=== PATIENT | female | born 2000 | race Asian ===

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

== ENCOUNTER 2018-05-05 18:58 | Emergency (ER) | payer SELFPAY ==
[2018-05-05 20:57] LABS: ABSOLUTE EOSINOPHILS # (AUTO) 0.1 10^3/uL (0.0-0.6); ABSOLUTE LYMPHOCYTES (AUTO) 1.6 10^3/uL (0.5-4.7); ABSOLUTE MONOCYTES (AUTO) 0.6 10^3/uL (0.1-1.4); ABSOLUTE NEUT (AUTO) 7.5 10^3/uL (1.7-8.2); BASOPHILS % (AUTO) 0.3 % (0-2); EOSINOPHILS % (AUTO) 1.1 % (0-6); HEMATOCRIT 35.8 % (36.0-47.0); HEMOGLOBIN 12.7 g/dL (12.0-15.5); LYMPHOCYTES % (AUTO) 16.3 % (13-45); MEAN CORPUSCULAR HEMOGLOBIN 33.9 pg (27.0-33.4); MEAN CORPUSCULAR HGB CONC 35.5 g/dL (32.0-36.0); MEAN CORPUSCULAR VOLUME 95 fl (80-97); MONOCYTES % (AUTO) 6.4 % (3-13); PLATELET COUNT 262 10^3/uL (150-450); RED BLOOD COUNT 3.75 10^6/uL (3.72-5.28); RED CELL DISTRIBUTION WIDTH 17.1 % (11.5-14.0); SEGMENTED NEUTROPHILS % (AUTO) 75.9 % (42-78); TOTAL CELLS COUNTED % (AUTO) 100 %; WHITE BLOOD COUNT 9.8 10^3/uL (4.0-10.5)
[2018-05-05 21:08] LABS: ALANINE AMINOTRANSFERASE 11 U/L (5-35); ALKALINE PHOSPHATASE 43 U/L (50-135); ANION GAP 8 (5-19); ASPARTATE AMINO TRANSFERASE 18 U/L (5-30); BILIRUBIN,DIRECT 0.1 mg/dL (0.0-0.4); BILIRUBIN,TOTAL 0.2 mg/dL (0.2-1.3); BLOOD UREA NITROGEN 7 mg/dL (7-20); CALCIUM 9.5 mg/dL (8.4-10.2); CARBON DIOXIDE 25 mmol/L (22-30); CHLORIDE 103 mmol/L (98-107); GLUCOSE 83 mg/dL (75-110); LIPASE 128.1 U/L (23-300); SODIUM 135.8 mmol/L (137-145); TOTAL PROTEIN 7.2 g/dL (6.3-8.2)
[2018-05-05 21:10] LABS: APPEARANCE,URINE SLIGHTLY-CLOUDY; BILIRUBIN,URINE NEGATIVE (NEGATIVE); COLOR,URINE YELLOW; GLUCOSE, URINE NEGATIVE (NEGATIVE); KETONES,URINE NEGATIVE (NEGATIVE); LEUKOCYTE ESTERASE,URINE MODERATE (NEGATIVE); NITRITE,URINE NEGATIVE (NEGATIVE); PROTEIN,URINE 30 mg/dL (NEGATIVE); URINE SPECIFIC GRAVITY 1.027; UROBILINOGEN,URINE NEGATIVE mg/dL (<2.0)
--- NOTE | 2018-05-05 22:29 | ER Document Report ---
ED Medical Screen (RME) - General Chief Complaint: Abdominal Pain Stated Complaint: ABDOMINAL PAIN Time Seen by Provider: 05/05/18 22:25 Notes: Patient is a 17-year-old female who presents to the emergency department with a chief complaint of left lower abdominal pain. She is 14 weeks . She states that the pain is in her left lower quadrant and then radiates to her back. She took ibuprofen for the pain. She also has some nausea with her pain. I have greeted and performed a rapid initial assessment of this patient. A co mprehensive ED assessment and evaluation of the patient, analysis of test results and completion of medical decision making process will be conducted by an additional ED providers. TRAVEL OUTSIDE OF THE [place] IN LAST 30 DAYS: No - Related Data Allergies/Adverse Reactions: No Known Allergies Allergy (Unverified 01/29/13 13:22) Past Medical History Renal/ Medical History: Denies: Hx Peritoneal Dialysis Psychiatric Medical History: Reports: Hx Attention Deficit Hyperactivity Disorder - Immunizations Immunizations up to date: Yes Hx Diphtheria, Pertussis, Tetanus Vaccination: Yes Physical Exam - Vital signs Vitals: Temp Pulse Resp BP Pulse Ox 98.3 F 75 16 121/71 99 05/05/18 19:26 05/05/18 19:26 05/05/18 19:26 05/05/18 19:26 05/05/18 19:26 - Abdominal Tenderness: Tender Course - Re-evaluation Re-evalutation: I have educated the patient in regards to taking Motrin for her pain. She states that she will not take Motrin anymore for pain while she is . - Vital Signs Vital signs: Temp Pulse Resp BP Pulse Ox 98.9 F 78 16 121/89 H 98 05/06/18 01:35 05/06/18 01:35 05/06/18 01:35 05/06/18 01:35 05/06/18 01:35 - Laboratory Result Diagrams: 05/05/18 20:05 05/05/18 20:05 Laboratory results interpreted by me: 05/05/18 05/05/18 05/05/18 20:05 20:05 20:05 Hct 35.8 L MCH 33.9 H RDW 17.1 H Sodium 135.8 L Creatinine 0.39 L Alkaline Phosphatase 43 L Beta HCG, Quant Urine Protein 30 H Ur Leukocyte Esterase MODERATE H Urine Ascorbic Acid 40 H 05/05/18 20:05 Hct MCH RDW Sodium Creatinine Alkaline Phosphatase Beta HCG, Quant 09089.00 H Urine Protein Ur Leukocyte Esterase Urine Ascorbic Acid Doctor's Discharge - Discharge Clinical Impression: Abdominal pain during Qualifiers: Trimester: second trimester Qualified Code(s): O26.892 - Other specified related conditions, second trimester UTI (urinary tract infection) Qualifiers: Urinary tract infection type: site unspecified Hematuria presence: without hematuria Qualified Code(s): N39.0 - Urinary tract infection, site not specified Condition: Good Disposition: HOME, SELF-CARE Prescriptions: Cephalexin Monohydrate [Keflex 500 mg Capsule] 500 mg PO BID 5 Days #10 capsule Ondansetron [Zofran Odt 4 mg Tablet] 1 tab PO Q4H PRN #15 tab.rapdis PRN Reason: For Nausea/Vomiting
--- NOTE | 2018-05-05 23:38 | RADIOLOGY REPORT (SQ) ---
EXAM DESCRIPTION: US LIMITED COMPLETED DATE/TME: 05/05/2018 22:25 CLINICAL HISTORY: 17 years Female, 14 weeks ; abdominal pain Comparison: None. TECHNIQUE/LIMITATION: Targeted OB sonogram for requested parameters only. FINDINGS: EGA is 14w 5d with SAMANTHA of 10/29/18 Cardiac activity: 163-bpm. LVP: 3.4-cm Placenta: Anterior. No evidence of abruption. No placenta previa. Presentation: Vertex Cervical length: 3.1-cm. Closed appearance. IMPRESSION: Targeted OB sonogram for requested parameters
[2018-05-06] MEDS ORDERED: LIDOCAINE 1% INJ-PF (10 MG/ML) 30 ML SDV INFIL ONE (00:18)
[2018-05-06] MEDS ORDERED: CEFTRIAXONE INJ 1000 MG VIAL IM ONE (00:18)
--- NOTE | 2018-05-06 00:18 | ER Document Report ---
ED General - General Chief Complaint: Abdominal Pain Stated Complaint: ABDOMINAL PAIN Time Seen by Provider: 05/05/18 22:25 Notes: Patient is a pleasant 17-year-old female who is currently approximately 14 weeks who presents with complaint of some pain in the left lower quadrant and suprapubic region of the abdomen. No nausea. No vomiting. No fevers. She says that she notices that when she goes to pee she has pain and cramping into her lower abdomen when she urinates. No abnormal vaginal discharge or bleeding. No vaginal bleeding at all. No other complaints at this time. TRAVEL OUTSIDE OF THE [place] IN LAST 30 DAYS: No - Related Data Allergies/Adverse Reactions: No Known Allergies Allergy (Unverified 01/29/13 13:22) Past Medical History - Social History Smoking Status: Never Smoker Frequency of alcohol use: None Drug Abuse: None Family History: Reviewed & Not Pertinent Patient has suicidal ideation: No Patient has homicidal ideation: No Renal/ Medical History: Denies: Hx Peritoneal Dialysis Psychiatric Medical History: Reports: Hx Attention Deficit Hyperactivity Disorder - Immunizations Immunizations up to date: Yes Hx Diphtheria, Pertussis, Tetanus Vaccination: Yes Review of Systems - Review of Systems Notes: My Normal Review Basic REVIEW OF SYSTEMS: CONSTITUTIONAL : Denies fever, chills, or sweats. Denies recent illness. EENT: Denies eye, ear, throat, or mouth pain or symptoms. Denies nasal or sinus congestion. GASTROINTESTINAL: Lower abdominal pain GENITOURINARY: Some pain in lower abdomen when urinating FEMALE GENITOURINARY: Denies vaginal bleeding, abnormal or irregular periods. LMP: Currently MUSCULOSKELETAL: Denies neck or back pain or joint pain or swelling. SKIN: Denies rash or skin lesions. NEUROLOGICAL: Denies altered mental status or loss of consciousness. Denies headache. Denies weakness or paralysis or loss of use of either side. Denies problems with gait or speech. Denies sensory or motor loss. ALL OTHER SYSTEMS REVIEWED AND NEGATIVE. Physical Exam - Vital signs Vitals: Temp Pulse Resp BP Pulse Ox 98.3 F 75 16 121/71 99 05/05/18 19:26 05/05/18 19:26 05/05/18 19:26 05/05/18 19:26 05/05/18 19:26 - Notes Notes: General Appearance: Well nourished, alert, cooperative, no acute distress, no obvious discomfort. Well-appearing. Vitals: reviewed, See vital signs table. Eyes: PERRL, EOMI, Conjuctiva clear Mouth: No decreasd moisture Lungs: No wheezing, No rales, No rhonci, No accessory muscle use, good air exchange bilaterally. Heart: Normal rate, Regular rythm, No murmur, no rub Abdomen: Normal BS, soft, No rigidity, mild suprapubic abdominal tenderness palpation., No guarding, no rebound, no abdominal masses, no organomegaly Extremities: good pulses in all extremities, no swelling or tenderness in the extremities, no edema. Skin: warm, dry, appropriate color, no rash Neuro: speech clear, oriented x 3, normal affect, responds appropriately to questions. Course - Re-evaluation Re-evalutation: 05/06/18 09:10 I feel patient is safe to be discharged home. Patient has what appears to be UTI. Give her a dose of Rocephin and will place her on Keflex. She denies abnormal vaginal discharge or bleeding. Ultrasound shows normal-appearing IUP. She has no fevers. She has not septic or toxic appearing. She is already on vitamins. I encouraged patient to return to ER immediately if she has fevers, abnormal vaginal discharge, any vaginal bleeding, or increasing pain. Patient agrees with plan and will be discharged home. Dictation of this chart was performed using voice recognition software; therefore, there may be some unintended grammatical errors. - Vital Signs Vital signs: Temp Pulse Resp BP Pulse Ox 98.9 F 78 16 121/89 H 98 05/06/18 01:35 05/06/18 01:35 05/06/18 01:35 05/06/18 01:35 05/06/18 01:35 - Laboratory Result Diagrams: 05/05/18 20:05 05/05/18 20:05 Laboratory results interpreted by me: 05/05/18 05/05/18 05/05/18 20:05 20:05 20:05 Hct 35.8 L MCH 33.9 H RDW 17.1 H Sodium 135.8 L Creatinine 0.39 L Alkaline Phosphatase 43 L Beta HCG, Quant Urine Protein 30 H Ur Leukocyte Esterase MODERATE H Urine Ascorbic Acid 40 H 05/05/18 20:05 Hct MCH RDW Sodium Creatinine Alkaline Phosphatase Beta HCG, Quant 35442.00 H Urine Protein Ur Leukocyte Esterase Urine Ascorbic Acid Discharge - Discharge Clinical Impression: Abdominal pain during Qualifiers: Trimester: second trimester Qualified Code(s): O26.892 - Other specified related conditions, second trimester UTI (urinary tract infection) Qualifiers: Urinary tract infection type: site unspecified Hematuria presence: without hematuria Qualified Code(s): N39.0 - Urinary tract infection, site not specified Condition: Good Disposition: HOME, SELF-CARE Prescriptions: RX: Cephalexin Monohydrate [Keflex 500 mg Capsule] 500 mg PO BID 5 Days #10 capsule Ondansetron [Zofran Odt 4 mg Tablet] 1 tab PO Q4H PRN #15 tab.rapdis PRN Reason: For Nausea/Vomiting
[2018-05-06 01:36] VITALS: BP 121/89
== END 2018-05-06 01:35 | disposition home or self-care (01) ==
LOC: ER 18:58
DX: O23.42 Unspecified infection of urinary tract in pregnancy, second trimester (principal); O26.892 Other specified pregnancy related conditions, second trimester; R10.32 Left lower quadrant pain; Z3A.00 Weeks of gestation of pregnancy not specified
CPT/HCPCS: 99284; 96372; 36415; 87086; 84702; 83690; 85025; 80053; 81001; 76815; J3490; J0696

== ENCOUNTER → 2018-06-13 | Outpatient (CLI) | payer OTHER ==
--- NOTE | 2018-06-13 16:25 | RADIOLOGY REPORT (SQ) ---
EXAM DESCRIPTION: U/S OB 14+ TRNABD 1GES W/O DOP COMPLETED DATE/TIME: 06/13/2018 3:54 pm REASON FOR STUDY: Z34.92 ENCOUNTER FOR SUPERVISION OF NORMAL ,UNSPECIFIED,SECOND TRI COMPARISON: None. TECHNIQUE: Static and Dynamic grayscale imaging performed of gravid uterus using transabdominal appr oac. Additional selected color Doppler and spectral images recorded. All stored on PACS. LIMITATIONS: None. FINDINGS: FETUSES SEEN:1 EGA: 20 weeks 2 days Calculated using BPD,FL,HC,AC documented on images. No discrepancy with clinica l dates. SAMANTHA: 10/29/2018 EFW: 345 grams PERCENTILE: Not applicable. Fetus less than or equal to 20 weeks gestation. GOPI: 4.0 PLACENTA: Anterior. GRADE: I PRESENTATION: Cephalic. ANATOMY: HEART RATE: 145 beats per minute. FOUR CHAMBER HEART: Visualized. THREE VESSEL CORD: Yes. CORD INSERTION: Visualized. KIDNEYS AND BLADDER: Visualized. Appear normal. STOMACH: Visualized. Appears normal. SPINE: Normal as visualized. BRAIN AND LATERAL VENTRICLES: Visualized. Appear normal. OTHER: No other significant finding. MATERNAL ADNEXA: Maternal ovaries not visualized. CERVICAL LENGTH: 3.4 cm. Closed. OTHER: No other significant finding. IMPRESSION: LIVING INTRAUTERINE . ESTIMATED GESTATIONAL AGE 20 weeks 2 days. NO VISUALIZED ANOMALIES. Trimester of : Second trimester - 13 weeks 1 day to 27 weeks 6 days. TECHNICAL DOCUMENTATION: JOB ID: [id number] [employer]- All Rights Reserved Reading location - IP/workstation name: [email or web address]
== END ==
LOC: RAD 17:52
PROVIDERS: ATTEND Family Medicine
DX: Z34.92 Encounter for supervision of normal pregnancy, unspecified, second trimester (principal)
CPT/HCPCS: 76805

== ENCOUNTER → 2018-09-15 | Outpatient (CLI) | payer MEDICAID | LOC: OD 16:45 | PROVIDERS: ATTEND Obstetrics & Gynecology | DX: Z34.03 Encounter for supervision of normal first pregnancy, third trimester (principal) | CPT/HCPCS: 36415; 86850 ==

== ENCOUNTER 2018-09-21 11:50 | Outpatient (CLI) | payer MEDICAID ==
[2018-09-21 12:24] LABS: ABSOLUTE EOSINOPHILS # (AUTO) 0.2 10^3/uL (0.0-0.6); ABSOLUTE LYMPHOCYTES (AUTO) 1.6 10^3/uL (0.5-4.7); ABSOLUTE MONOCYTES (AUTO) 0.9 10^3/uL (0.1-1.4); BASOPHILS % (AUTO) 0.2 % (0-2); EOSINOPHILS % (AUTO) 1.4 % (0-6); HEMATOCRIT 31.6 % (36.0-47.0); HEMOGLOBIN 10.8 g/dL (12.0-15.5); LYMPHOCYTES % (AUTO) 13.6 % (13-45); MEAN CORPUSCULAR HEMOGLOBIN 33.3 pg (27.0-33.4); MEAN CORPUSCULAR HGB CONC 34.4 g/dL (32.0-36.0); MEAN CORPUSCULAR VOLUME 97 fl (80-97); MONOCYTES % (AUTO) 7.7 % (3-13); PLATELET COUNT 242 10^3/uL (150-450); RED BLOOD COUNT 3.26 10^6/uL (3.72-5.28); SEGMENTED NEUTROPHILS % (AUTO) 77.1 % (42-78); TOTAL CELLS COUNTED % (AUTO) 100 %; WHITE BLOOD COUNT 11.6 10^3/uL (4.0-10.5)
[2018-09-21 12:45] LABS: ALANINE AMINOTRANSFERASE 11 U/L (5-35); ALBUMIN 3.4 g/dL (3.7-5.6); ALKALINE PHOSPHATASE 64 U/L (50-135); AMYLASE 93 U/L (30-110); ANION GAP 9 (5-19); ASPARTATE AMINO TRANSFERASE 18 U/L (5-30); BILIRUBIN,DIRECT 0.1 mg/dL (0.0-0.4); BILIRUBIN,TOTAL 0.3 mg/dL (0.2-1.3); BLOOD UREA NITROGEN 4 mg/dL (7-20); CALCIUM 9.1 mg/dL (8.4-10.2); CARBON DIOXIDE 24 mmol/L (22-30); CHLORIDE 103 mmol/L (98-107); GLUCOSE 88 mg/dL (75-110); LIPASE 103.1 U/L (23-300); POTASSIUM 3.7 mmol/L (3.6-5.0); SODIUM 135.9 mmol/L (137-145); TOTAL PROTEIN 6.6 g/dL (6.3-8.2)
[2018-09-21] MEDS ORDERED: ACETAMINOPHEN 325 MG TABLET PO PRN (12:55)
[2018-09-21] MEDS ORDERED: CITRIC ACID/SODIUM CITRATE ORAL SOLN 15 ML UDCUP PO ONE (12:55)
[2018-09-21] MEDS ORDERED: ACETAMINOPHEN 325 MG TABLET ONE (12:58)
[2018-09-21] MEDS ORDERED: CITRIC ACID/SODIUM CITRATE ORAL SOLN 15 ML UDCUP ONE (12:58)
[2018-09-21 13:11] LABS: APPEARANCE,URINE CLEAR; BILIRUBIN,URINE NEGATIVE (NEGATIVE); COLOR,URINE YELLOW; GLUCOSE, URINE NEGATIVE (NEGATIVE); KETONES,URINE NEGATIVE (NEGATIVE); LEUKOCYTE ESTERASE,URINE SMALL (NEGATIVE); NITRITE,URINE NEGATIVE (NEGATIVE); PROTEIN,URINE NEGATIVE (NEGATIVE); URINE SPECIFIC GRAVITY 1.009; UROBILINOGEN,URINE NEGATIVE mg/dL (<2.0)
[2018-09-21 13:50] LABS: URINE AMPHETAMINES SCREEN NEGATIVE; URINE BARBITURATES SCREEN NEGATIVE; URINE BENZODIAZEPINES SCREEN NEGATIVE; URINE COCAINE SCREEN NEGATIVE; URINE METHADONE SCREEN NEGATIVE; URINE PHENCYCLIDINE SCREEN NEGATIVE
[2018-09-21 13:57] LABS: URINE MARIJUANA (THC) SCREEN UNCONFIRMED POSITIVE
== END 2018-09-21 13:50 | disposition home or self-care (01) ==
LOC: LC 11:50
PROVIDERS: ATTEND Obstetrics & Gynecology Gynecology
PROC: 4A1HXCZ Monitoring of Products of Conception, Cardiac Rate, External Approach (ICD-10-PCS; principal; 2018-09-21)
DX: O99.283 Endocrine, nutritional and metabolic diseases complicating pregnancy, third trimester (principal); E86.0 Dehydration; R11.2 Nausea with vomiting, unspecified; Z3A.34 34 weeks gestation of pregnancy
CPT/HCPCS: 59025; 36415; 82150; 83690; 85025; 81005; 80053; 80307; G0480 ×2; J3490 ×2; 80349

== ENCOUNTER → 2018-09-28 | Outpatient (CLI) | payer MEDICAID ==
--- NOTE | 2018-09-28 13:44 | RADIOLOGY REPORT (SQ) ---
EXAM DESCRIPTION: U/S ABDOMEN LIMITED W/O DOP COMPLETED DATE/TIME: 09/28/2018 12:11 pm REASON FOR STUDY: R10.11 R UPPER QUADRANT PAIN R10.11 RIGHT UPPER QUADRANT PAIN COMPARISON: None. TECHNIQUE: Dynamic and static grayscale images acquired of the abdomen and recorded on PACS. Additio nal selected color Doppler and spectral images recorded. LIMITATIONS: None. FINDINGS: PANCREAS: Not seen. LIVER: No masses. Echotexture normal. LIVER VASCULATURE: Normal directional flow of the main portal vein and hepatic veins. GALLBLADDER: Trace sludge. No gallstones. No wall thickening. No pericholecystic fluid. ULTRASOUND-DETECTED PATEL'S SIGN: Negative. INTRAHEPATIC DUCTS AND COMMON DUCT: CBD and intrahepatic ducts normal caliber. No filling defects. INFERIOR VENA CAVA: Normal flow. AORTA: No aneurysm. RIGHT KIDNEY: Normal size, 11.9 cm. Normal echogenicity. No solid or suspicious masses. Mild to mod erate hydronephrosis. No calcifications. PERITONEAL AND RIGHT PLEURAL SPACE: No ascites or effusions. OTHER: No other significant findings. IMPRESSION: Trace sludge in the gallbladder. No gallstones. Mild to moderate right hydronephrosis. TECHNICAL DOCUMENTATION: JOB ID: [id number] [employer]- All Rights Reserved Reading location - IP/workstation name: [email or web address]
== END ==
LOC: RAD 11:30
PROVIDERS: ATTEND Student in an Organized Health Care Education/Training Program
DX: O99.613 Diseases of the digestive system complicating pregnancy, third trimester (principal); K82.8 Other specified diseases of gallbladder; K92.0 Hematemesis; N13.30 Unspecified hydronephrosis; O26.893 Other specified pregnancy related conditions, third trimester; R10.11 Right upper quadrant pain; Z3A.34 34 weeks gestation of pregnancy
CPT/HCPCS: 76705

== ENCOUNTER 2018-10-20 02:08 | Outpatient (CLI) | payer MEDICAID ==
--- NOTE | 2018-10-20 02:21 | Non Stress Test Report ---
Non Stress Test Datetime Report Generated by CPN: 10/20/2018 02:21 DEMOGRAPHIC Test Number: 1 EGA NST: 34.5 INDICATION Indication for Study: Decreased Movement VITAL SIGNS Temperature - NST: 97.2 Pulse - NST: 74 RESP - NST: 17 NBPSYS NST: 116 NBPDIA NST: 66 MONITORING Monitor Explained: Monitor Explained; Test Explained; Patient Verbalized Understanding Time on Monitor: 09/21/2018 12:25 Time off Monitor: 09/21/2018 12:51 NST Duration: 26 NST INTERVENTIONS NST Interventions: PO Hydration Physician Notified NST: Dr Vargas BABY A: [id number] BABY A Movement : Present Contraction Frequency : denies FHR Baseline : 130 Accelerations : 10X10 Variability : Moderate 6-25bpm NST Review: Meets Criteria for Reactive NST NST Review and Verified By : Shan Baxter RN NST REPORT Report Trigger: Send Report
[2018-10-20] MEDS ORDERED: MAG HYDROX/AL HYDROX/SIMETH SUSP 30 ML UDCUP ONE (02:33)
[2018-10-20 02:55] LABS: APPEARANCE,URINE CLEAR; BILIRUBIN,URINE NEGATIVE (NEGATIVE); COLOR,URINE STRAW; GLUCOSE, URINE NEGATIVE (NEGATIVE); KETONES,URINE NEGATIVE (NEGATIVE); LEUKOCYTE ESTERASE,URINE MODERATE (NEGATIVE); NITRITE,URINE NEGATIVE (NEGATIVE); PROTEIN,URINE NEGATIVE (NEGATIVE); URINE SPECIFIC GRAVITY 1.006; UROBILINOGEN,URINE NEGATIVE mg/dL (<2.0)
[2018-10-20 03:11] LABS: URINE AMPHETAMINES SCREEN NEGATIVE; URINE BARBITURATES SCREEN NEGATIVE; URINE BENZODIAZEPINES SCREEN NEGATIVE; URINE COCAINE SCREEN NEGATIVE; URINE MARIJUANA (THC) SCREEN NEGATIVE; URINE METHADONE SCREEN NEGATIVE; URINE PHENCYCLIDINE SCREEN NEGATIVE
[2018-10-20] MEDS ORDERED: HYDROXYZINE PAMOATE 50 MG CAPSULE ONE ×2 (03:26→03:37)
--- NOTE | 2018-10-20 03:37 | Non Stress Test Report ---
Non Stress Test Datetime Report Generated by CPN: 10/20/2018 03:36 DEMOGRAPHIC EGA NST: 38.6 INDICATION Indication for Study: Other Indication for Study (NST) Other: LC MONITORING Monitor Explained: Monitor Explained; Test Explained; Patient Verbalized Understanding Time on Monitor: 10/20/2018 02:20 Time off Monitor: 10/20/2018 02:46 NST Duration: 26 NST INTERVENTIONS NST Interventions: PO Hydration Physician Notified NST: Vargas BABY A Movement : Present Contraction Frequency : 5-6 FHR Baseline : 130 Accelerations : 15X15 Decelerations : None Variability : Moderate 6-25bpm NST Review: Questionable if Meets Criteria for Reactive NST NST Review and Verified By : Ayan Campa RN NST Results: Reactive NST REPORT Report Trigger: Send Report
[2018-10-20] MEDS ORDERED: HYDROXYZINE PAMOATE 50 MG CAPSULE PO ONE (03:47)
[2018-10-20 04:39] LABS: CHLAM PCR NOT DETECTED (NOT DETECT)
== END 2018-10-20 03:45 | disposition home or self-care (01) ==
LOC: LC 02:08
PROVIDERS: ATTEND Obstetrics & Gynecology Gynecology
PROC: 4A1HXCZ Monitoring of Products of Conception, Cardiac Rate, External Approach (ICD-10-PCS; principal; 2018-10-20)
DX: O47.1 False labor at or after 37 completed weeks of gestation (principal); Z3A.38 38 weeks gestation of pregnancy
CPT/HCPCS: 81005; 80307; 87491; 87591; 59025; J3490 ×2

== ENCOUNTER 2018-10-26 21:34 | Inpatient (IN) | payer MEDICAID ==
[2018-10-26] MEDS ORDERED: AZITHROMYCIN 250 MG TABLET ONE (22:29)
[2018-10-26 22:34] LABS: APPEARANCE,URINE SLIGHTLY-CLOUDY; BILIRUBIN,URINE NEGATIVE (NEGATIVE); COLOR,URINE YELLOW; GLUCOSE, URINE NEGATIVE (NEGATIVE); KETONES,URINE NEGATIVE (NEGATIVE); LEUKOCYTE ESTERASE,URINE SMALL (NEGATIVE); NITRITE,URINE NEGATIVE (NEGATIVE); PROTEIN,URINE NEGATIVE (NEGATIVE); URINE SPECIFIC GRAVITY 1.021; UROBILINOGEN,URINE NEGATIVE mg/dL (<2.0)
[2018-10-26] MEDS ORDERED: OXYTOCIN 10 UNIT/ML VIAL ONE (22:37)
[2018-10-26] MEDS ORDERED: MISOPROSTOL 0.2 MG TABLET ONE (22:38)
[2018-10-26] MEDS ORDERED: OXYTOCIN/NORMAL SALINE 20 UNIT/1,000 ML RTUINJ ONE ×2 (22:38)
[2018-10-26] MEDS ORDERED: LIDOCAINE 1% INJ-PF (10 MG/ML) 30 ML SDV ONE (22:38)
[2018-10-26 22:51] LABS: URINE AMPHETAMINES SCREEN NEGATIVE; URINE BARBITURATES SCREEN NEGATIVE; URINE BENZODIAZEPINES SCREEN NEGATIVE; URINE COCAINE SCREEN NEGATIVE; URINE MARIJUANA (THC) SCREEN NEGATIVE; URINE METHADONE SCREEN NEGATIVE; URINE PHENCYCLIDINE SCREEN NEGATIVE
[2018-10-26] MEDS ORDERED: PENICILLIN G-K 5 MILLION UNIT VIAL ONE (23:12)
[2018-10-26 23:14] LABS: ABSOLUTE BASOPHILS # (AUTO) 0.2 10^3/uL (0.0-0.2); ABSOLUTE EOSINOPHILS # (AUTO) 0.1 10^3/uL (0.0-0.6); ABSOLUTE LYMPHOCYTES (AUTO) 2.2 10^3/uL (0.5-4.7); ABSOLUTE MONOCYTES (AUTO) 0.9 10^3/uL (0.1-1.4); ABSOLUTE NEUT (AUTO) 11.8 10^3/uL (1.7-8.2); EOSINOPHILS % (AUTO) 0.8 % (0-6); HEMATOCRIT 33.8 % (36.0-47.0); HEMOGLOBIN 11.5 g/dL (12.0-15.5); LYMPHOCYTES % (AUTO) 14.6 % (13-45); MEAN CORPUSCULAR HEMOGLOBIN 31.2 pg (27.0-33.4); MEAN CORPUSCULAR HGB CONC 34.2 g/dL (32.0-36.0); MEAN CORPUSCULAR VOLUME 91 fl (80-97); PLATELET COUNT 245 10^3/uL (150-450); RED CELL DISTRIBUTION WIDTH 14.4 % (11.5-14.0); SEGMENTED NEUTROPHILS % (AUTO) 77.6 % (42-78); TOTAL CELLS COUNTED % (AUTO) 100 %; WHITE BLOOD COUNT 15.3 10^3/uL (4.0-10.5)
[2018-10-27] MEDS ORDERED: ACETAMINOPHEN 325 MG TABLET ONE ×2 (00:04→06:00)
[2018-10-27] MEDS ORDERED: PENICILLIN G POTASSIUM 5,000,000 UNIT in DEXTROSE 5%-WATER 100 ML IV ONE (00:20)
[2018-10-27] MEDS ORDERED: NALBUPHINE HCL INJ 10 MG/1 ML AMPULE ONE (00:27)
[2018-10-27] MEDS ORDERED: EPHEDRINE SULFATE INJ 50 MG/1 ML AMPULE ONE (00:36)
[2018-10-27] MEDS ORDERED: BUPIVACAINE HCL 0.25 % INJ/PF (2.5 MG/1 ML) 30 ML VIAL ONE (00:37)
[2018-10-27] MEDS ORDERED: FENTANYL/BUPIVACAINE/NS/PF 300 MCG/150 ML RTUINJ EPI ONE (00:37)
[2018-10-27] MEDS ORDERED: ACETAMINOPHEN 325 MG TABLET PO ONE (01:15)
[2018-10-27] MEDS ORDERED: NALBUPHINE HCL INJ 10 MG/1 ML AMPULE IV ONE (01:15)
[2018-10-27] MEDS ORDERED: PENICILLIN G-K 5 MILLION UNIT VIAL ONE (02:54)
[2018-10-27] MEDS ORDERED: PENICILLIN G POTASSIUM 2,500,000 UNIT in DEXTROSE 5%-WATER 50 ML IV SCH (04:00)
--- NOTE | 2018-10-27 04:10 | Admission Physical ---
Datetime Report Generated by CPN: 10/27/2018 04:10 CURRENT ADMISSION Chief Complaint: Uterine Contractions Indication for Induction: Not Applicable Admit Impression : Term, Intrauterine Admit Plan: Initiate Labor Protocol ALLERGIES Medication Allergies: No Medication Allergies: No Known Allergies (10/20/2018) Latex: No Latex Allergies OBSTETRICAL HISTORY EDC: 10/28/2018 00:00 : 1 Para: 0 Gestational Diabetes: No Rh Sensitization: No Incompetent Cervix: No DEEP: No Infertility: No ART Treatment: No Uterine Anomaly: No IUGR: No Hx Previous C/S: No Macrosomia: No Hx Loss/Stillborn: No PIH: No Hx : No Placenta Previa/Abruption: No Depression/PP Depression: No PTL/PROM: No Post Hemorrhage: No Current Procedures: Ultrasound Obstetrical History Comments: G1- current , late PNC, RH neg, antibody positive Anti BIGS - adopting baby to aunt, incarcerated this SEE RECORDS Alcohol: No Marijuana : No Marijuana Frequency: 3 - 5 Times Per Week Marijuana Comments: Pt states useage was before Cocaine: No Other Illicit Drugs: No Cigarettes: Former Smoker. [id number] MEDICAL HISTORY Diabetes: No Blood Transfusion: No Pulmonary Disease (Asthma, TB): No Breast Disease: No Hypertension: No Educational Administrator Surgery: No Heart Disease: No Hosp/Surgery: No Autoimmune Disorder: No Anesthetic Complications: No Kidney Disease: No Abnormal Pap Smear: No Neuro/Epilepsy: No Psychiatric Disorders: No Other Medical Diseases: No Hepatitis/Liver Disease: No Significant Family History: No Varicosities/Phlebitis: No Trauma/Violence : No Thyroid Dysfunction: No INFECTIOUS HISTORY Gonorrhea: No Genital Herpes: No Chlamydia: Yes Tuberculosis: No Syphilis: No Hepatitis: No HIV/AIDS Exposure: No Rash or Viral Illness: No HPV: No PHYSICAL EXAM General: Normal HEENT: Normal Neurologic: Normal Thyroid: Normal Heart: Normal Lungs: Normal Breast: Deferred Back: Normal Abdomen: Normal Genitourinary Exam: Normal Extremities: Normal DTRs: Normal Pelvic Type: Adequate FETUS A EGA: 39.6 PLANS FOR LABOR AND DELIVERY Labor and Delivery: None Pain Management: Medications; Epidural Feeding Preference: Formula Circumcision: N/A INFORMED CONSENT Signature: with User ID: [email or web address]
[2018-10-27] MEDS ORDERED: OXYTOCIN/NORMAL SALINE 20 UNIT/1,000 ML RTUINJ IV PRN (04:59)
[2018-10-27] MEDS ORDERED: MAGNESIUM HYDROXIDE SUSP 30 ML UDCUP PO PRN (04:59)
[2018-10-27] MEDS ORDERED: PSEUDOEPHEDRINE HCL 30 MG TABLET PO PRN (04:59)
[2018-10-27] MEDS ORDERED: PROMETHAZINE HCL 25 MG TABLET PO PRN (04:59)
[2018-10-27] MEDS ORDERED: NA PHOS,M-B/NA PHOS,DI-BA (ADULT) 133 ML ENEMA PR PRN (04:59)
[2018-10-27] MEDS ORDERED: ACETAMINOPHEN 650 MG SUPP.RECT PR PRN (04:59)
[2018-10-27] MEDS ORDERED: MEASLES,MUMPS&RUBELLA VACC/PF 0.5 ML VIAL SUBCUT PRN (04:59)
[2018-10-27] MEDS ORDERED: GLYCERIN/WITCH HAZEL LEAF 1 EACH MED..WIPE TP PRN (04:59)
[2018-10-27] MEDS ORDERED: ZOLPIDEM TARTRATE 5 MG TABLET PO PRN (04:59)
[2018-10-27] MEDS ORDERED: ACETAMINOPHEN WITH CODEINE #3 TABLET PO PRN (04:59)
[2018-10-27] MEDS ORDERED: PROMETHAZINE HCL INJ 25 MG/1 ML VIAL IV PRN (04:59)
[2018-10-27] MEDS ORDERED: BENZOCAINE/MENTHOL AEROSOL SPRAY 56 ML TOP PRN (04:59)
[2018-10-27] MEDS ORDERED: DIPHENHYDRAMINE HCL 25 MG CAPSULE PO PRN (04:59)
[2018-10-27] MEDS ORDERED: DIBUCAINE 1% OINTMENT 56 GM TP PRN (04:59)
[2018-10-27] MEDS ORDERED: DIPH/PERTUSS(ACELL)/TETANUS VAC/PF 0.5 ML SYR (>=10YO) IM PRN (04:59)
[2018-10-27] MEDS ORDERED: PROMETHAZINE HCL 25 MG SUPP.RECT PR PRN (04:59)
--- NOTE | 2018-10-27 05:33 | Delivery Summary ---
Del Sum A-C Datetime Report Generated by CPN: 10/27/2018 05:33 DELIVERY PERSONNEL DELIVERY PERSONNEL: [id number] Delivery Doctor:: Magan Vargas MD Labor and Delivery Nurse:: Luciana Hein editor farm journal Nurse:: Lisa Campa, RN MATERNAL INFORMATION Delivery Anesthesia: Epidural Medications After Delivery: Pitocin Bolus-Please Comment Delivery QBL: 100 Maternal Complications: None LABOR SUMMARY EDC: 10/28/2018 00:00 Attempted: No Labor Anesthesia: Epidural LABOR INFORMATION Reason for Induction: Not Applicable Onset of Labor: 10/26/2018 21:00 Complete Dilatation: 10/27/2018 03:42 Oxytocin: N/A Group B Beta Strep: pos Antibiotics # of Doses: 2 Antibiotics Time of Last Dose: 0315 Name of Antibiotic Given: Penicillin Steroids Given: None Reason Steroids Not Administered: Not Applicable MEMBRANES Membranes Rupture Method: Spontaneous Rupture of Membranes: 10/26/2018 21:00 Length of Rupture (hr): 7.83 Amniotic Fluid Color: Clear Amniotic Fluid Amount: Moderate Amniotic Fluid Odor: Normal STAGES OF LABOR Stage 1 hr: 6 Stage 1 min: 42 Stage 2 hr: 1 Stage 2 min: 8 Stage 3 hr: 0 Stage 3 min: 4 Total Time in Labor hr: 7 Total Time in Labor min: 54 VAGINAL DELIVERY Episiotomy: None Laceration #1: None Laceration Extension #1: N/A Laceration Repair: Not Applicable CSECTION DELIVERY Primary Indication: N/A BABY A INFORMATION Delivery Date/Time: 10/27/2018 04:50 Method of Delivery: Vaginal Born in Route : No : N/A Forceps: N/A Vacuum Extraction: N/A Shoulder Dystocia : No PRESENTATION/POSITION BABY A Presentation: Cephalic Cephalic Presentation: Vertex Vertex Position: Right Occipital Anterior Breech Presentation: N/A PLACENTA INFORMATION BABY A Placenta Delivery Time : 10/27/2018 04:54 Placenta Method of Delivery: Spontaneous Placenta Status: Delivered SCORES BABY A Heart Rate 1 min: >100 bpm Resp Effort 1 min: Good Cry Reflex Irritability 1 min: Cough or Sneeze or Pulls Away Muscle Tone 1 min: Active Motion Color 1 min: Blue/Pale Resuscitation Effort 1 min: Tactile Stimulation SCORE 1 MIN: 8 Heart Rate 5 min: >100 bpm Resp Effort 5 min: Good Cry Reflex Irritability 5 min: Cough or Sneeze or Pulls Away Muscle Tone 5 min: Active Motion Color 5 min: Body Searcy, Extremities Blue Resuscitation Effort 5 min: Tactile Stimulation SCORE 5 MIN: 9 INFANT INFORMATION BABY A Gestational Age at Delivery: 39.6 Gestational Status: Full Term- 39- 40.6 Weeks Outcome : Liveborn Condition : Stable Infant Sex: Female IDENTIFICATION BABY A Infant Verification Date/Time: 10/27/2018 05:22 ID Band Number: [id number] Mother's Name Verified: Yes Infant RN Verifying Infant: Noe RN Additional Verifying Personnel: JAMES Luz WEIGHT/LENGTH BABY A Birthweight (gm): 3255 Weight (lb): 7 Infant Weight (oz): 3 Infant Length (in): 19.00 Infant Length (cm): 48.26 CORD INFORMATION BABY A No. Cord Vessels: 3 Nuchal Cord : N/A Nuchal Cord- Other: cord around foot Cord Blood Taken: Yes-For Eval (Mom's Blood Type - or O+) Suction: Mouth; Nose ASSESSMENT BABY A Complications: None Physical Findings at Delivery: Within Normal Limits Infant Respirations: Appears Normal Skin to Skin: No Industrial Ecologist/ALS Called : No Care By: Ayan Campa RN Transferred To: Remains with Mother BABY B INFORMATION : N/A SIGNATURES Signature: with User ID: [email or web address]
[2018-10-27] MEDS ORDERED: OXYTOCIN/NORMAL SALINE 20 UNIT/1,000 ML RTUINJ ONE (05:57)
[2018-10-27] MEDS: IBUPROFEN 800 MG TABLET PO SCH ×3 (09:25→22:15)
[2018-10-27] MEDS: SENNOSIDES/DOCUSATE 8.6-50 MG 1 EACH TABLET PO SCH (09:28)
[2018-10-27] MEDS: DOCUSATE SODIUM 100 MG CAPSULE PO SCH ×2 (09:28→17:26)
[2018-10-27] MEDS: FAMOTIDINE 20 MG TABLET PO SCH ×2 (09:28→22:15)
[2018-10-27] MEDS: FERROUS SULFATE 325 MG TABLET PO SCH ×2 (09:28→17:26)
[2018-10-27] MEDS: PRENATAL VITAMIN W DHA CAPSULE PO SCH (09:28)
[2018-10-27] MEDS ORDERED: AZITHROMYCIN 1 GM SUSP PACKET PO ONE (11:30)
[2018-10-28] MEDS: IBUPROFEN 800 MG TABLET PO SCH ×3 (06:07→21:35)
[2018-10-28 06:46] LABS: HEMATOCRIT 27.9 % (36.0-47.0); HEMOGLOBIN 9.5 g/dL (12.0-15.5); MEAN CORPUSCULAR VOLUME 88 fl (80-97); PLATELET COUNT 205 10^3/uL (150-450); RED BLOOD COUNT 3.16 10^6/uL (3.72-5.28); RED CELL DISTRIBUTION WIDTH 14.3 % (11.5-14.0); WHITE BLOOD COUNT 13.7 10^3/uL (4.0-10.5)
[2018-10-28] MEDS: ACETAMINOPHEN WITH CODEINE #3 TABLET PO PRN ×2 (08:50→20:36)
--- NOTE | 2018-10-28 09:39 | PDOC PROGRESS REPORT ---
Subjective-OB Progress Note for:: 10/28/18 Subjective: Doing well, no c/o, adoptive mother in room holding baby, Dr. Durant in room talking to pt about her antibody in blood Physical Exam (OB) Vital Signs: Temp Pulse Resp BP Pulse Ox 97.9 F 68 16 115/71 98 10/28/18 07:50 10/28/18 07:50 10/28/18 07:50 10/28/18 07:50 10/28/18 07:50 Intake & Output 10/27/18 10/28/18 10/29/18 06:59 06:59 06:59 Weight 72.5 kg - PIH/Pre-Eclampsia Clonus: Negative Headache: Absent Epigastric Pain: No Visual Changes: No - Lochia Lochia Amount: Scant < 10 ml Lochia Color: Rubra/Red - Abdomen Description: Tender, Soft, Round Hernia Present: No Fundal Description: Firm, Midline Fundal Height: u/u - u/2 Objective-Diagnostic Laboratory: 10/28/18 06:35 10/28/18 06:35 WBC 13.7 H RBC 3.16 L Hgb 9.5 L Hct 27.9 L MCV 88 MCH 30.0 MCHC 34.0 RDW 14.3 H Plt Count 205 Assessment and Plan(PN) - Assessment and Plan (1) Chlamydia infection affecting Qualifiers: Trimester: unspecified trimester Qualified Code(s): O98.819 - Other maternal infectious and parasitic diseases complicating , unspecified trimester; A74.9 - Chlamydial infection, unspecified Is this a current diagnosis for this admission?: Yes (2) Marijuana abuse Is this a current diagnosis for this admission?: Yes (3) Delivery normal Is this a current diagnosis for this admission?: Yes - Time Spent with Patient Time with patient: Less than 15 minutes Medications reviewed and adjusted accordingly: Yes - Disposition Anticipated Discharge: Home Within: within 24 hours
[2018-10-28] MEDS: DOCUSATE SODIUM 100 MG CAPSULE PO SCH ×2 (10:51→18:40)
[2018-10-28] MEDS: SENNOSIDES/DOCUSATE 8.6-50 MG 1 EACH TABLET PO SCH (10:51)
[2018-10-28] MEDS: FERROUS SULFATE 325 MG TABLET PO SCH ×2 (10:51→18:40)
[2018-10-28] MEDS: PRENATAL VITAMIN W DHA CAPSULE PO SCH (10:51)
[2018-10-28] MEDS: FAMOTIDINE 20 MG TABLET PO SCH ×2 (10:51→21:35)
[2018-10-29] MEDS: IBUPROFEN 800 MG TABLET PO SCH (05:56)
--- NOTE | 2018-10-29 08:47 | PDOC PROGRESS REPORT ---
Subjective-OB Progress Note for:: 10/29/18 Subjective: no c/o. asking questions about home care, doing well, family at [facility] Physical Exam (OB) Vital Signs: Temp Pulse Resp BP Pulse Ox 98.2 F 59 L 16 131/80 H 99 10/29/18 07:35 10/29/18 07:35 10/29/18 07:35 10/29/18 07:35 10/29/18 07:35 - PIH/Pre-Eclampsia DTR's: 2 + Clonus: Negative Headache: Absent Epigastric Pain: No Visual Changes: No - Lochia Lochia Amount: Small 10-25 ml Lochia Color: Rubra/Red - Abdomen Description: Soft, Round Hernia Present: No Fundal Description: Firm, Midline Fundal Height: u/u - u/2 Objective-Diagnostic Laboratory: 10/28/18 06:35 10/28/18 06:35 Blood Type [id number] NEGATIVE Assessment and Plan(PN) - Assessment and Plan (1) Chlamydia infection affecting Qualifiers: Trimester: unspecified trimester Qualified Code(s): O98.819 - Other maternal infectious and parasitic diseases complicating , unspecified trimester; A74.9 - Chlamydial infection, unspecified Is this a current diagnosis for this admission?: Yes (2) Marijuana abuse Is this a current diagnosis for this admission?: Yes (3) Delivery normal Is this a current diagnosis for this admission?: Yes - Time Spent with Patient Time with patient: Less than 15 minutes Medications reviewed and adjusted accordingly: Yes - Disposition Anticipated Discharge: Home Within: within 24 hours
[2018-10-29 08:51] VITALS: BP 115/71
--- NOTE | 2018-10-29 08:52 | PDOC DISCHARGE SUMMARY ---
Final Diagnosis Discharge Date: 10/29/18 - Final Diagnosis (1) Chlamydia infection affecting Is this a current diagnosis for this admission?: Yes (2) Marijuana abuse Is this a current diagnosis for this admission?: Yes (3) Delivery normal Is this a current diagnosis for this admission?: Yes Discharge Data - Discharge Medication Home Medications: Vit/Dha [ Multi + Dha Capsule] 1 cap PO DAILY 09/21/18 Gestational Age: 39.6 Reason(s) for Admission: Onset of Labor, Group B Strep Positive Procedures: NST, Ultrasound Intrapartum Procedure(s): Spontaneous Vaginal Delivery - Data Baby 1 Female at 1 minute: 8 at 5 minutes: 9 Weight: 3.26 kg Home with Mother: Yes Complications: No - Diagnosis Test Laboratory: Temp Pulse Resp BP Pulse Ox 98.2 F 59 L 16 131/80 H 99 10/29/18 07:35 10/29/18 07:35 10/29/18 07:35 10/29/18 07:35 10/29/18 07:35 10/26/18 10/26/18 10/28/18 21:45 23:00 06:35 RBC 3.70 L 3.16 L Hgb 11.5 L 9.5 L Hct 33.8 L 27.9 L Urine Opiates Screen NEGATIVE - Discharge information/Instructions Discharge Activity: Activity As Tolerated, No Lifting Over 10 Pounds, No Lifting/Push/Pulling, Pelvic Rest Discharge Diet: As Tolerated, Regular Disposition: HOME, SELF-CARE Follow up with: [facility] in: 2, Weeks
[2018-10-29] MEDS: SENNOSIDES/DOCUSATE 8.6-50 MG 1 EACH TABLET PO SCH (10:07)
[2018-10-29] MEDS: FAMOTIDINE 20 MG TABLET PO SCH (10:07)
[2018-10-29] MEDS: PRENATAL VITAMIN W DHA CAPSULE PO SCH (10:07)
[2018-10-29] MEDS: FERROUS SULFATE 325 MG TABLET PO SCH (10:07)
[2018-10-29] MEDS: DOCUSATE SODIUM 100 MG CAPSULE PO SCH (10:07)
== END 2018-10-29 11:55 | disposition home or self-care (01) | DRG 806 ==
LOC: LC 21:34 → LR 22:38 → 2S 10-27 09:15
PROVIDERS: ADMIT Obstetrics & Gynecology Gynecology; ATTEND Obstetrics & Gynecology Gynecology
PROC: 10E0XZZ Delivery of Products of Conception, External Approach (ICD-10-PCS; principal; 2018-10-27)
PROC: 3E0234Z Introduction of Serum, Toxoid and Vaccine into Muscle, Percutaneous Approach (ICD-10-PCS; 2018-10-29)
DX: O69.2XX0 Labor and delivery complicated by other cord entanglement, with compression, not applicable or unspecified (principal); O99.324 Drug use complicating childbirth; O98.82 Other maternal infectious and parasitic diseases complicating childbirth; Z37.0 Single live birth; F12.10 Cannabis abuse, uncomplicated; A74.9 Chlamydial infection, unspecified; O26.893 Other specified pregnancy related conditions, third trimester; Z3A.39 39 weeks gestation of pregnancy; Z87.891 Personal history of nicotine dependence; Z67.91 Unspecified blood type, Rh negative
CPT/HCPCS: 36415; 80307; 81005; 84112; 85025; 85027; 85461; 86592; 86850; 86870; 86900; 86901; J2300; J2540; J2590; J2790; J3010; J3490; J7060

== ENCOUNTER 2019-02-10 07:19 | Emergency (ER) | payer MEDICAID ==
[2019-02-10 08:33] LABS: ABSOLUTE EOSINOPHILS # (AUTO) 0.2 10^3/uL (0.0-0.6); ABSOLUTE LYMPHOCYTES (AUTO) 2.7 10^3/uL (0.5-4.7); ABSOLUTE MONOCYTES (AUTO) 0.8 10^3/uL (0.1-1.4); ABSOLUTE NEUT (AUTO) 5.9 10^3/uL (1.7-8.2); BASOPHILS % (AUTO) 0.2 % (0-2); EOSINOPHILS % (AUTO) 2.5 % (0-6); HEMATOCRIT 41.4 % (36.0-47.0); HEMOGLOBIN 13.9 g/dL (12.0-15.5); LYMPHOCYTES % (AUTO) 28.2 % (13-45); MEAN CORPUSCULAR HEMOGLOBIN 29.4 pg (27.0-33.4); MEAN CORPUSCULAR HGB CONC 33.5 g/dL (32.0-36.0); MEAN CORPUSCULAR VOLUME 88 fl (80-97); MONOCYTES % (AUTO) 8.1 % (3-13); PLATELET COUNT 318 10^3/uL (150-450); RED BLOOD COUNT 4.72 10^6/uL (3.72-5.28); RED CELL DISTRIBUTION WIDTH 14.6 % (11.5-14.0); TOTAL CELLS COUNTED % (AUTO) 100 %; WHITE BLOOD COUNT 9.7 10^3/uL (4.0-10.5)
[2019-02-10 08:36] LABS: AMORPHOUS SEDIMENT,URINE TRACE /HPF; APPEARANCE,URINE CLEAR; BILIRUBIN,URINE NEGATIVE (NEGATIVE); COLOR,URINE YELLOW; GLUCOSE, URINE NEGATIVE (NEGATIVE); KETONES,URINE NEGATIVE (NEGATIVE); LEUKOCYTE ESTERASE,URINE TRACE (NEGATIVE); NITRITE,URINE NEGATIVE (NEGATIVE); PROTEIN,URINE NEGATIVE (NEGATIVE); URINE SPECIFIC GRAVITY 1.013; UROBILINOGEN,URINE NEGATIVE mg/dL (<2.0)
--- NOTE | 2019-02-10 08:45 | ER Document Report ---
ED GI/ - General Chief Complaint: Abdominal Pain Stated Complaint: ABDOMINAL PAIN Primary Care Provider: PALMA MACIEL MD [Primary Care Provider] - Follow up as needed TRAVEL OUTSIDE OF THE [place] IN LAST 30 DAYS: No - HPI Notes: 02/10/19 08:55 18-year-old female to the emergency department with complaints of left upper quadrant abdominal pain and pain up under the left ribs that awoke her from sleep this morning. She admits to associated nausea. She denies any vomiting or diarrhea. She states that she felt something "pop" in her abdomen. Denies any fevers, chills, cough, chest pain. She states that she had one beer last night but otherwise had a normal evening. She states that she has had a normal bowel movements yesterday. She also reports a secondary complaint of sore throat for 2 days. She states that it feels a lot like strep throat which she gets often. She states she has not had a fever with this. She denies any nasal congestion, ear pain, headache. States that her period was last week. She just had a child 3 months ago. She denies any other complaints. - Related Data Allergies/Adverse Reactions: No Known Allergies Allergy (Verified 02/10/19 07:32) Past Medical History - General Information source: Patient, Parent, Relative - significant other - Social History Smoking Status: Current Some Day Smoker - patient report "hooka" use Frequency of alcohol use: Occasional Drug Abuse: Marijuana Family History: Reviewed & Not Pertinent Patient has suicidal ideation: No Patient has homicidal ideation: No Renal/ Medical History: Denies: Hx Peritoneal Dialysis Psychiatric Medical History: Reports: Hx Attention Deficit Hyperactivity Disorder - Immunizations Immunizations up to date: Yes Hx Diphtheria, Pertussis, Tetanus Vaccination: Yes Review of Systems - Review of Systems Constitutional: denies: Chills, Fever EENT: See HPI, Throat pain. denies: Ear pain, Nose congestion, Sinus pressure, Throat swelling, Mouth pain Cardiovascular: denies: Chest pain, Palpitations, Heart racing, Orthopnea, Dyspnea, Syncope, Dizziness, Lightheaded, Edema Respiratory: denies: Cough, Hurts to breathe, Short of breath, Stridor Gastrointestinal: Abdominal pain, Nausea. denies: Diarrhea, Vomiting, Constipation Genitourinary: No symptoms reported. denies: Flank pain Musculoskeletal: No symptoms reported Skin: No symptoms reported Neurological/Psychological: No symptoms reported -: Yes All other systems reviewed and negative Physical Exam - Vital signs Vitals: Temp Pulse Resp BP Pulse Ox 97.8 F 88 20 144/85 H 100 02/10/19 07:32 02/10/19 07:32 02/10/19 07:32 02/10/19 07:32 02/10/19 07:32 Interpretation: Normal - General General appearance: Appears well, Alert In distress: None - HEENT Head: Normocephalic, Atraumatic Eyes: Normal Pupils: PERRL Ears: Normal External canal: Normal Tympanic membrane: Normal Sinus: Normal Nasal: Normal Mouth/Lips: Normal. No: Angioedema Mucous membranes: Normal Pharynx: Erythema, Exudate - there is beefy erythema with exudate to the tonsils. Mild symmetric hypertrophy of tonsils -- approximately 1+ in size. 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 No Nitin's angina. Airway is grossly patent. Neck: Supple. No: Lymphadenopathy, Meningismus - Respiratory Respiratory status: No respiratory distress Chest status: Nontender. No: Pain on movement, Pain with cough, Pain with deep breathing Breath sounds: Normal. No: Decreased air movement, Rales, Rhonchi, Stridor, Wheezing Chest palpation: Normal - Cardiovascular Rhythm: Regular Heart sounds: Normal auscultation Murmur: No - Abdominal Inspection: Normal Distension: No distension Bowel sounds: Normal Tenderness: Nontender - patient has no TTP over the LUQ or epigastrium. she states "it doesn't hurt when you touch, but it hurts on the inside".. No: McBurney's point, Lara's sign, Guarding, Rebound Organomegaly: No organomegaly - Back Back: Normal, Nontender. 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 No: Pronator drift Sensory: Normal - Psychological Associated symptoms: Normal affect, Normal mood - Skin Skin Temperature: Warm Skin Moisture: Dry Skin Color: Normal Course - Re-evaluation Re-evalutation: 02/10/19 Impression: Left upper quadrant abdominal pain, nausea, strep throat. Patient has had relief of her pain is completely asymptomatic after Toradol and Zofran. Noted labs which are reassuring. She is not . Noted acute abdominal series results. Noted rapid strep result. We will go ahead and start on amoxicillin for strep throat and sent home with Zofran and Bentyl. Repeat abdom inal exam illustrates soft nontender abdomen. Encouraged to return if she has any worsening symptoms. We will have her follow-up with primary care. Patient agrees. 02/10/19 Acute Abdomen Series 02/10/19 08:54 IMPRESSION: NO RADIOGRAPHIC EVIDENCE FOR ACUTE ABDOMINAL DISEASE. Laboratory 02/10/19 02/10/19 02/10/19 07:58 07:58 07:58 WBC 9.7 RBC 4.72 Hgb 13.9 Hct 41.4 MCV 88 MCH 29.4 MCHC 33.5 RDW 14.6 H Plt Count 318 Lymph % (Auto) 28.2 Whitley % (Auto) 8.1 Eos % (Auto) 2.5 Baso % (Auto) 0.2 Absolute Neuts (auto) 5.9 Absolute Lymphs (auto) 2.7 Absolute Monos (auto) 0.8 Absolute Eos (auto) 0.2 Absolute Basos (auto) 0.0 Seg Neutrophils % 61.0 Sodium 141.7 Potassium 3.6 Chloride 104 Carbon Dioxide 27 Anion Gap 11 BUN 9 Creatinine 0.60 Est GFR ( Amer) > 60 Est GFR (MDRD) Non-Af > 60 Glucose 86 Calcium 10.3 H Total Bilirubin 0.5 Direct Bilirubin 0.1 Neonat Total Bilirubin Not Reportable Neonat Direct Bilirubin Not Reportable Neonat Indirect Bili Not Reportable AST 30 ALT 43 Alkaline Phosphatase 77 Total Protein 8.7 H Albumin 4.9 Lipase 86.1 Beta HCG, Quant < 2.39 Total Beta HCG NEGATIVE Urine Color YELLOW Urine Appearance CLEAR Urine pH 7.0 Ur Specific Caroleen 1.013 Urine Protein NEGATIVE Urine Glucose (UA) NEGATIVE Urine Ketones NEGATIVE Urine Blood NEGATIVE Urine Nitrite NEGATIVE Urine Bilirubin NEGATIVE Urine Urobilinogen NEGATIVE Ur Leukocyte Esterase TRACE H Urine WBC (Auto) 7 Urine RBC (Auto) 0 Squamous Epi Cells Auto <1 Amorphous Sediment Auto TRACE Urine Mucus (Auto) RARE Urine Ascorbic Acid NEGATIVE Group A Strep Rapid 02/10/19 09:12 WBC RBC Hgb Hct MCV MCH MCHC RDW Plt Count Lymph % (Auto) Whitley % (Auto) Eos % (Auto) Baso % (Auto) Absolute Neuts (auto) Absolute Lymphs (auto) Absolute Monos (auto) Absolute Eos (auto) Absolute Basos (auto) Seg Neutrophils % Sodium Potassium Chloride Carbon Dioxide Anion Gap BUN Creatinine Est GFR ( Amer) Est GFR (MDRD) Non-Af Glucose Calcium Total Bilirubin Direct Bilirubin Neonat Total Bilirubin Neonat Direct Bilirubin Neonat Indirect Bili AST ALT Alkaline Phosphatase Total Protein Albumin Lipase Beta HCG, Quant Total Beta HCG Urine Color Urine Appearance Urine pH Ur Specific Caroleen Urine Protein Urine Glucose (UA) Urine Ketones Urine Blood Urine Nitrite Urine Bilirubin Urine Urobilinogen Ur Leukocyte Esterase Urine WBC (Auto) Urine RBC (Auto) Squamous Epi Cells Auto Amorphous Sediment Auto Urine Mucus (Auto) Urine Ascorbic Acid Group A Strep Rapid POSITIVE - Vital Signs Vital signs: Temp Pulse Resp BP Pulse Ox 97.8 F 88 20 144/85 H 100 02/10/19 07:32 02/10/19 07:32 02/10/19 07:32 02/10/19 07:32 02/10/19 07:32 - Laboratory Result Diagrams: 02/10/19 07:58 02/10/19 07:58 Laboratory results interpreted by me: 02/10/19 02/10/19 02/10/19 07:58 07:58 07:58 RDW 14.6 H Calcium 10.3 H Total Protein 8.7 H Ur Leukocyte Esterase TRACE H - Diagnostic Test Radiology reviewed: Image reviewed, Reports reviewed Discharge - Discharge Clinical Impression: Strep throat, LUQ abdominal pain, Nausea Condition: Stable Disposition: HOME, SELF-CARE Instructions: Abdominal Pain ([facility]), Strep Throat ([facility]) Additional Instructions: TAKE MEDICINES PRESCRIBED. RETURN IF WORSE. PUSH FLUIDS. REST AT HOME. Prescriptions: Ondansetron [Zofran Odt 4 mg Tablet] 1 - 2 tab PO Q4HP PRN #10 tab.rapdis PRN Reason: Amoxicillin 1 tab PO TID #30 tab Dicyclomine HCl [Bentyl 10 mg Capsule] 1 cap PO TID #12 cap Forms: Return to Work Referrals: PALMA MACIEL MD [Primary Care Provider] - Follow up in 1 week
[2019-02-10] MEDS ORDERED: NORMAL SALINE 1000 ML 1,000 ML IV ONE (08:54)
[2019-02-10] MEDS ORDERED: ONDANSETRON HCL INJ/PF 4 MG/2 ML SDV IV ONE (08:54)
[2019-02-10] MEDS ORDERED: KETOROLAC TROMETHAMINE INJ/PF 30 MG/1 ML SDV IV ONE (08:54)
[2019-02-10 08:58] LABS: ALBUMIN 4.9 g/dL (3.5-5.0); ALKALINE PHOSPHATASE 77 U/L (38-126); ANION GAP 11 (5-19); ASPARTATE AMINO TRANSFERASE 30 U/L (14-36); BILIRUBIN,DIRECT 0.1 mg/dL (0.0-0.4); BILIRUBIN,TOTAL 0.5 mg/dL (0.2-1.3); BLOOD UREA NITROGEN 9 mg/dL (7-20); CALCIUM 10.3 mg/dL (8.4-10.2); CARBON DIOXIDE 27 mmol/L (22-30); CHLORIDE 104 mmol/L (98-107); GLUCOSE 86 mg/dL (75-110); POTASSIUM 3.6 mmol/L (3.6-5.0); TOTAL PROTEIN 8.7 g/dL (6.3-8.2)
--- NOTE | 2019-02-10 09:44 | RADIOLOGY REPORT (SQ) ---
EXAM DESCRIPTION: ACUTE ABDOMEN SERIES COMPLETED DATE/TIME: 02/10/2019 9:21 am REASON FOR STUDY: LUQ pain, pain under ribs COMPARISON: None. NUMBER OF VIEWS: Three views. TECHNIQUE: Frontal chest, supine abdomen and upright/decubitus abdomen radiographic images acquired. LIMITATIONS: None. FINDINGS: CHEST: Lungs clear of infiltrates. FREE AIR: None. No abnormal gas collections. BOWEL GAS PATTERN: Nonobstructive pattern. No dilated loops or air fluid levels. CALCIFICATIONS: No suspicious calcifications. HARDWARE: None in the abdomen. SOFT TISSUES: No gross mass or suggestion of organomegaly. BONES: No acute fracture. No worrisome bone lesions. OTHER: No other significant finding. IMPRESSION: NO RADIOGRAPHIC EVIDENCE FOR ACUTE ABDOMINAL DISEASE. TECHNICAL DOCUMENTATION: JOB ID: [id number] [employer]- All Rights Reserved Reading location - IP/workstation name: [email or web address]
[2019-02-10 10:58] VITALS: BP 127/71
== END 2019-02-10 10:52 | disposition home or self-care (01) ==
LOC: ER 07:19
DX: J02.0 Streptococcal pharyngitis (principal); R10.12 Left upper quadrant pain; R11.0 Nausea; F17.200 Nicotine dependence, unspecified, uncomplicated
CPT/HCPCS: 36415; 87880; 84702; 83690; 85025; 80053; 81001; 74022; J1885; J2405; J7030; 96361; 96374; 96375; 99284

== ENCOUNTER 2019-03-15 23:55 | Emergency (ER) | payer OTHER, MEDICAID ==
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
[2019-03-16] MEDS ORDERED: HYDROCODONE/ACETAMINOPHEN 7.5-325 MG TABLET PO ONE (02:44)
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
[2019-03-16 04:21] VITALS: BP 112/81
== END 2019-03-16 04:08 | disposition home or self-care (01) ==
LOC: ER 23:55
DX: S90.811A Abrasion, right foot, initial encounter (principal); S00.83XA Contusion of other part of head, initial encounter; R51 Headache; M54.2 Cervicalgia; V69.50XA Passenger in heavy transport vehicle injured in collision with unspecified motor vehicles in traffic accident, initial encounter; R11.10 Vomiting, unspecified
CPT/HCPCS: 70450; 72125